=== PATIENT | male | born 1970 | race Caucasian/White ===

== ENCOUNTER 2021-03-11 20:35 | Observation (INO) ==
[2021-03-11] MEDS ORDERED: SODIUM CHLORIDE 0.9% 1000ML 1,000 ML IV SCH (21:15)
[2021-03-11 21:51] LABS: Alanine Aminotransferase 27 U/L (12-78); Albumin Level 3.7 gm/dl (3.4-5.0); Aspartate Aminotransferase 17 U/L (15-37); BUN Creatinine Ratio 17.2 (10-20); Blood Urea Nitrogen 15 mg/dl (7-18); Calcium 9.2 mg/dl (8.5-10.1); Carbon Dioxide 27 mmol/L (21-32); Chloride 107 mmol/L (98-107); Est GFR (African American) 115.6 ml/min; Est GFR (Non-African American) 99.7 ml/min; Glucose 109 mg/dl (70-99); Lipase 112 U/L (73-393); Sodium 139 mmol/L (136-145)
[2021-03-11 21:56] LABS: Alkaline Phosphatase 76 U/L (45-117); Bilirubin,Total 0.2 mg/dl (0.2-1); Globulin 3.7 gm/dl (2.5-4.0); Total Protein 7.4 gm/dl (6.4-8.2); Troponin I < 0.015 ng/ml (0-0.045)
[2021-03-11] MEDS ORDERED: MECLIZINE HCL 25 MG TAB PO STA (22:00)
[2021-03-11 22:40] LABS: Hemoglobin 14.4 g/dL (14.0-18.0); Mean Corpuscular Hgb Conc 34.3 g/dL (32-36); Mean Corpuscular Volume 96.3 fL (80-100); RDW Coefficient of Variation 14.1 % (11.5-14.5); RDW Standard Deviation 50.3 fL (36.4-46.3); Red Blood Count 4.36 M/uL (4.7-6.1)
--- NOTE | 2021-03-11 23:21 | Emergency Department Note ---
Impression & Plan Vomiting, Leukocytosis, Dizziness, Marijuana use ED Provider Note CHIEF COMPLAINT: Dizzy vomiting HISTORY OF PRESENT ILLNESS: This 51-year-old male patient presents to the emergency department by ambulance with complaints of sudden onset dizziness, vomiting per his . Patient's apparently called the ambulance this evening. She states they had a "normal evening" but when they got ready for bed the patient had a sudden urge to vomit. She states there was almost no warning. He seemed to feel better after vomiting and try to get back into bed. He then jumped back up and ran to the bathroom and vomited again. On his way back to bed the second time, the patient was unsteady and seemed to be somewhat disoriented. Patient's states that he was not drinking alcohol tonight and she denies any substance abuse. He has been in his usual state of health. REVIEW OF SYSTEMS: A review of systems was performed with positives and pertinent negatives listed in the history of present illness. 10 systems were reviewed and are otherwise negative. ALLERGIES: see below MEDICATIONS: see below PMH: see below SOCIAL HISTORY: see below DDx: Benign positional vertigo, dehydration, hypovolemia, anemia, tumor, infection, hypoglycemia, electrolyte abnormalities, cardiac sources, intracerebral event, toxicologic, neurologic, as well as other pathologies. PHYSICAL EXAM: Vital signs reviewed. General: Somewhat ill-appearing, thin and somnolent 51-year-old male HEENT: No scleral icterus, PERRLA, pupils are approximately 4 mm and reactive bilaterally neck supple. Atraumatic. Cardiovascular: Regular rate and rhythm, no extra sounds. Pulmonary: Clear to auscultation bilaterally, normal work of breathing. Abdomen: Soft, nontender, nondistended, positive bowel sounds. Musculoskeletal: Atraumatic, no peripheral edema. Neurologic: Patient somnolent but arousable. Speech is clear. Patient does not follow complex commands. Skin: Warm, dry, no rash EMERGENCY DEPARTMENT COURSE/MDM: Patient was evaluated and appeared to be in no significant distress. IV access was obtained and laboratory work was drawn. Patient was placed on nurse monitoring and noted to be in normal sinus rhythm. Chest x-ray was performed and was negative. Head CT read as below, negative for acute abnormality. Laboratory work is positive for marijuana. Patient's blood alcohol content is negative. I do not believe the patient has suffered an acute stroke given his presentation. Patient was hydrated with normal saline solution, given p.o. meclizine. I do suspect this is substance related, possibly cannabis hyperemesis syndrome. Nonetheless at this time patient seems to be somewhat stable. MONITORING: An order for cardiac monitoring was placed and the patient is noted to be in a normal sinus rhythm at 84 beats per minute. RADIOLOGY: See below EKG: Normal sinus rhythm at 91 bpm. QTC is 440. Normal ST segments. Normal axis. QTC is 440. No PVC, no PAC. DISPOSITION: Past Med/Surg History Medical History Back pain Lumbar back sprain Surgical History History of inguinal hernia repair Social History (Updated 03/11/21 @ 23:21 by Qian Godinez MD) Smoking Status: Current every day smoker Tobacco Type: Cigarettes Second Hand Exposure: Yes; Do You Dip or Chew Tobacco: No; Hx Alcohol Use: Yes Alcohol Intake Frequency: 2-3 x/Week Hx Substance Use: No Preferred Language: Belarusian Communication Ability: Effective Track Grinder Operator Required: No Beliefs That Will Affect Care: None Current Living Situation: Spouse Current Living Situation Comment: Other Information That Helps Us Care for You: No Feels Safe at Home: Yes Safety Concerns: Feels Safe At This Time Assistive Devices: None Allergies Allergies Allergy/AdvReac Type Severity Reaction Status Date / Time No Known Allergies Allergy Verified 03/11/21 21:08 Home Meds Home Medications Medication Instructions Recorded Confirmed No Known Home Medications 03/11/21 03/11/21 Results & Data (ED) Vital Signs Vital Signs - 24 hr 03/11/21 20:45 03/11/21 21:00 03/11/21 21:30 Temperature 36.0 C L Temperature Source Oral Pulse Rate 63 70 96 H Pulse Rate from SpO2 Sensor 72 Respiratory Rate 17 17 29 H Blood Pressure 134/93 137/85 135/83 Blood Pressure Mean 106 102 100 Pulse Oximetry 95 92 91 Oxygen Delivery Method Room Air Room Air Room Air Sepsis Recent Fever Within 48 Hours No Sepsis New/Unexplained Change in Mental Status No Sepsis Action Taken by Nursing No Action Required 03/11/21 22:00 03/11/21 22:30 03/11/21 23:00 Temperature Temperature Source Pulse Rate 84 83 81 Pulse Rate from SpO2 Sensor 83 83 82 Respiratory Rate 21 17 19 Blood Pressure 118/70 135/83 123/65 Blood Pressure Mean 86 100 84 Pulse Oximetry 95 93 94 Oxygen Delivery Method Room Air Room Air Room Air Sepsis Recent Fever Within 48 Hours Sepsis New/Unexplained Change in Mental Status Sepsis Action Taken by [facility] Medications Current Medication List: was personally reviewed by me Laboratory Data Attestation: I reviewed the patient's lab results. Result diagrams: 03/12/21 07:09 03/12/21 07:09 Lab Results 03/11/21 03/11/21 03/11/21 Range/Units 21:26 21:26 22:53 WBC 22.70 H (4.8-10.8) K/uL RBC 4.36 L (4.7-6.1) M/uL Hgb 14.4 (14.0-18.0) g/dL Hct 42.0 (42-52) % MCV 96.3 (80-100) fL MCH 33.0 (25-34) pg MCHC 34.3 (32-36) g/dL RDW Std Deviation 50.3 H (36.4-46.3) fL RDW Coeff of Ruthann 14.1 (11.5-14.5) % Plt Count 222 (130-400) K/uL MPV 10.8 H (7.4-10.4) fL Immature Gran % (Auto) 0.3 % Neut % (Auto) 79.9 % Lymph % (Auto) 13.3 % [place] % (Auto) 5.7 % Eos % (Auto) 0.7 % Baso % (Auto) 0.1 % Neut # (Auto) 18.11 H (1.4-6.5) K/uL Lymph # (Auto) 3.03 (1.2-3.4) K/uL [place] # (Auto) 1.30 H (0.11-0.59) K/uL Eos # (Auto) 0.16 (0-0.5) K/uL Baso # (Auto) 0.03 (0-0.2) K/uL Immature Gran # (Auto) 0.07 H (0.00-0.02) K/uL Platelet Estimate Normal (Normal) Sodium 139 (136-145) mmol/L Potassium 4.0 (3.5-5.1) mmol/L Chloride 107 (98-107) mmol/L Carbon Dioxide 27 (21-32) mmol/L Anion Gap 5.0 (3-11) BUN 15 (7-18) mg/dl Creatinine 0.89 (0.6-1.4) mg/dl Est Cr Clr Drug Dosing Not Reportable Est GFR ( Amer) 115.6 ml/min Est GFR (Non-Af Amer) 99.7 ml/min BUN/Creatinine Ratio 17.2 (10-20) Glucose 109 H (70-99) mg/dl Calcium 9.2 (8.5-10.1) mg/dl Magnesium 2.2 (1.8-2.4) mg/dl Total Bilirubin 0.2 (0.2-1) mg/dl AST 17 (15-37) U/L ALT 27 (12-78) U/L Alkaline Phosphatase 76 (45-117) U/L Total Creatine Kinase 146 (39-308) U/L Troponin I < 0.015 (0-0.045) ng/ml Total Protein 7.4 (6.4-8.2) gm/dl Albumin 3.7 (3.4-5.0) gm/dl Globulin 3.7 (2.5-4.0) gm/dl Albumin/Globulin Ratio 1.0 (0.9-2) Lipase 112 (73-393) U/L TSH 0.801 (0.300-4.500) uIu/ml Urine Color Urine Appearance (Clear) Urine pH (4.5-7.5) Ur Specific [place] (1.000-1.030) Urine Protein (Negative) Urine Glucose (UA) (Negative) Urine Ketones (Negative) Urine Blood (Negative) Urine Nitrite (Negative) Urine Bilirubin (Negative) Urine Urobilinogen (Negative) Ur Leukocyte Esterase (Negative) Urine Opiates Screen (Neg) Ur Methadone, Qual (Neg) Urine Barbiturates (Neg) Ur Phencyclidine (PCP) (Neg) U Amphetamin/Meth Scrn (Neg) MDMA (Ecstasy) Screen (Neg) U Benzodiazepines Scrn (Neg) Ur Cocaine Metabolite (Neg) U Marijuana (THC) Screen (Neg) U Marijuana THC Carboxy (<5) ng/mL Drug Screen Comment Ethyl Alcohol mg/dL (0-3) mg/dl COVID-19 Eval Order Covid19 at [facility] SARS-CoV-2 (PCR) (Negative) 03/11/21 03/11/21 03/11/21 Range/Units 22:53 22:56 22:56 WBC (4.8-10.8) K/uL RBC (4.7-6.1) M/uL Hgb (14.0-18.0) g/dL Hct (42-52) % MCV (80-100) fL MCH (25-34) pg MCHC (32-36) g/dL RDW Std Deviation (36.4-46.3) fL RDW Coeff of Ruthann (11.5-14.5) % Plt Count (130-400) K/uL MPV (7.4-10.4) fL Immature Gran % (Auto) % Neut % (Auto) % Lymph % (Auto) % [place] % (Auto) % Eos % (Auto) % Baso % (Auto) % Neut # (Auto) (1.4-6.5) K/uL Lymph # (Auto) (1.2-3.4) K/uL [place] # (Auto) (0.11-0.59) K/uL Eos # (Auto) (0-0.5) K/uL Baso # (Auto) (0-0.2) K/uL Immature Gran # (Auto) (0.00-0.02) K/uL Platelet Estimate (Normal) Sodium (136-145) mmol/L Potassium (3.5-5.1) mmol/L Chloride (98-107) mmol/L Carbon Dioxide (21-32) mmol/L Anion Gap (3-11) BUN (7-18) mg/dl Creatinine (0.6-1.4) mg/dl Est Cr Clr Drug Dosing Est GFR ( Amer) ml/min Est GFR (Non-Af Amer) ml/min BUN/Creatinine Ratio (10-20) Glucose (70-99) mg/dl Calcium (8.5-10.1) mg/dl Magnesium (1.8-2.4) mg/dl Total Bilirubin (0.2-1) mg/dl AST (15-37) U/L ALT (12-78) U/L Alkaline Phosphatase (45-117) U/L Total Creatine Kinase (39-308) U/L Troponin I (0-0.045) ng/ml Total Protein (6.4-8.2) gm/dl Albumin (3.4-5.0) gm/dl Globulin (2.5-4.0) gm/dl Albumin/Globulin Ratio (0.9-2) Lipase (73-393) U/L TSH (0.300-4.500) uIu/ml Urine Color Yellow Urine Appearance Clear (Clear) Urine pH 7.0 (4.5-7.5) Ur Specific [place] 1.020 (1.000-1.030) Urine Protein Negative (Negative) Urine Glucose (UA) Negative (Negative) Urine Ketones Negative (Negative) Urine Blood Negative (Negative) Urine Nitrite Negative (Negative) Urine Bilirubin Negative (Negative) Urine Urobilinogen Negative (Negative) Ur Leukocyte Esterase Negative (Negative) Urine Opiates Screen Neg (Neg) Ur Methadone, Qual Neg (Neg) Urine Barbiturates Neg (Neg) Ur Phencyclidine (PCP) Neg (Neg) U Amphetamin/Meth Scrn Neg (Neg) MDMA (Ecstasy) Screen Neg (Neg) U Benzodiazepines Scrn Neg (Neg) Ur Cocaine Metabolite Neg (Neg) U Marijuana (THC) Screen Pos H (Neg) U Marijuana THC Carboxy (<5) ng/mL Drug Screen Comment Ethyl Alcohol mg/dL (0-3) mg/dl COVID-19 Eval Order SARS-CoV-2 (PCR) NEGATIVE (Negative) 03/11/21 03/11/21 Range/Units 22:56 23:51 WBC (4.8-10.8) K/uL RBC (4.7-6.1) M/uL Hgb (14.0-18.0) g/dL Hct (42-52) % MCV (80-100) fL MCH (25-34) pg MCHC (32-36) g/dL RDW Std Deviation (36.4-46.3) fL RDW Coeff of Ruthann (11.5-14.5) % Plt Count (130-400) K/uL MPV (7.4-10.4) fL Immature Gran % (Auto) % Neut % (Auto) % Lymph % (Auto) % [place] % (Auto) % Eos % (Auto) % Baso % (Auto) % Neut # (Auto) (1.4-6.5) K/uL Lymph # (Auto) (1.2-3.4) K/uL [place] # (Auto) (0.11-0.59) K/uL Eos # (Auto) (0-0.5) K/uL Baso # (Auto) (0-0.2) K/uL Immature Gran # (Auto) (0.00-0.02) K/uL Platelet Estimate (Normal) Sodium (136-145) mmol/L Potassium (3.5-5.1) mmol/L Chloride (98-107) mmol/L Carbon Dioxide (21-32) mmol/L Anion Gap (3-11) BUN (7-18) mg/dl Creatinine (0.6-1.4) mg/dl Est Cr Clr Drug Dosing Est GFR ( Amer) ml/min Est GFR (Non-Af Amer) ml/min BUN/Creatinine Ratio (10-20) Glucose (70-99) mg/dl Calcium (8.5-10.1) mg/dl Magnesium (1.8-2.4) mg/dl Total Bilirubin (0.2-1) mg/dl AST (15-37) U/L ALT (12-78) U/L Alkaline Phosphatase (45-117) U/L Total Creatine Kinase (39-308) U/L Troponin I (0-0.045) ng/ml Total Protein (6.4-8.2) gm/dl Albumin (3.4-5.0) gm/dl Globulin (2.5-4.0) gm/dl Albumin/Globulin Ratio (0.9-2) Lipase (73-393) U/L TSH (0.300-4.500) uIu/ml Urine Color Urine Appearance (Clear) Urine pH (4.5-7.5) Ur Specific [place] (1.000-1.030) Urine Protein (Negative) Urine Glucose (UA) (Negative) Urine Ketones (Negative) Urine Blood (Negative) Urine Nitrite (Negative) Urine Bilirubin (Negative) Urine Urobilinogen (Negative) Ur Leukocyte Esterase (Negative) Urine Opiates Screen (Neg) Ur Methadone, Qual (Neg) Urine Barbiturates (Neg) Ur Phencyclidine (PCP) (Neg) U Amphetamin/Meth Scrn (Neg) MDMA (Ecstasy) Screen (Neg) U Benzodiazepines Scrn (Neg) Ur Cocaine Metabolite (Neg) U Marijuana (THC) Screen (Neg) U Marijuana THC Carboxy 138 H (<5) ng/mL Drug Screen Comment SEE NOTE Ethyl Alcohol mg/dL < 3.0 (0-3) mg/dl COVID-19 Eval Order SARS-CoV-2 (PCR) (Negative) Administered Medications Discontinued Medications Enoxaparin Sodium (Enoxaparin Inj 40 Mg/0.4 Ml Syr) 40 mg SQ QAM ATIYA Stop: 04/11/21 08:59 Last Admin: 03/12/21 09:47 Dose: Not Given Documented by: [id number] Sodium Chloride (Nss 1000ml) 1,000 mls @ 999 mls/hr IV .Q1H1M ATIYA Stop: 03/11/21 22:15 Last Infusion: 03/11/21 22:29 Dose: 0 mls/hr Documented by: [id number] Admin: 03/11/21 21:28 Dose: 999 mls/hr Documented by: [id number] Lactated Ringer's (Lr) 1,000 mls @ 100 mls/hr IV .Q10H ONE Stop: 03/12/21 11:22 Last Infusion: 03/12/21 11:45 Dose: 0 mls/hr Documented by: [id number] Admin: 03/12/21 03:46 Dose: 100 mls/hr Documented by: [id number] Ibuprofen (Ibuprofen 200 Mg Tab) 200 mg PO Q6H PRN PRN Reason: Mild Pain Stop: 04/11/21 02:45 Last Admin: 03/12/21 08:02 Dose: 200 mg Documented by: [id number] Ioversol (Optiray 320 125ml) 120 ml IV ONCE ONE Stop: 03/11/21 23:53 Last Admin: 03/11/21 23:53 Dose: 1 ml Documented by: [id number] Meclizine HCl (Meclizine Hcl 25 Mg Tab) 25 mg PO NOW STA Stop: 03/11/21 22:01 Last Admin: 03/11/21 22:16 Dose: 25 mg Documented by: [id number] Miscellaneous (Remove Nicoderm Patch) 1 ea N/A [id number] [facility] Stop: 04/11/21 08:58 Last Admin: 03/12/21 09:48 Dose: 1 ea Documented by: [id number] Nicotine (Nicotine 21 Mg/24 Hr Tdsy) 21 mg TD QAM ATIYA Stop: 04/11/21 02:45 Last Admin: 03/12/21 09:47 Dose: 21 mg Documented by: [id number] Admin: 03/12/21 03:50 Dose: 21 mg Documented by: [id number] Imaging Data Radiologist's Impression: Head CTA 03/11/21 21:44 CT ANGIOGRAM OF THE BRAIN COMBO CLINICAL HISTORY: Acute posterior circulation symptoms. COMPARISON STUDY: No priors. TECHNIQUE: Unenhanced axial CT scan of the brain is performed. Subsequently, following the IV administration of 120 cc of Optiray 320, CT angiogram of the brain was performed from the skull base to the vertex. Images are reviewed in the axial, sagittal, and coronal planes. 3-D MIPS images are created and assessed. IV contrast was administered without complication. A dose lowering technique was utilized adhering to the principles of ALARA. CT DOSE: 1484.17 mGy.cm FINDINGS: Brain parenchyma: The brain parenchyma is normal in appearance. There is no hemorrhage, mass effect, or evidence of acute territorial ischemia by CT criteria. There is no evidence of enhancing mass lesion on the angiogram phase images. No extra-axial fluid collection is seen. Curtis-white matter differentiation is preserved. Ventricles, sulci, and cisterns: Normal in configuration. CT angiogram of the brain: There is a right posterior communicating artery. The internal carotid arteries are widely patent, as are the anterior and middle cerebral arteries. The vertebrobasilar system and posterior cerebral arteries are widely patent. The vertebral arteries are codominant. There is no aneurysm, high-grade stenosis, or focal vessel cutoff identified throughout the intracranial circulation. Dural sinuses: Clear as visualized. Orbits: The bony orbits are intact. The orbital contents are normal as visualized. Sinuses and mastoids: The visualized paranasal sinuses are clear. The mastoid air cells are well pneumatized. Calvarium: Unremarkable. IMPRESSION: 1. There is no hemorrhage, mass effect, or evidence of acute territorial ischemia by CT criteria. 2. Unremarkable CT angiogram of the brain. ACT 112: Negative or not required by law. Electronically signed by: Buddy Carrillo M.D. 03/12/2021 8:13 AM Neck CTA 03/11/21 21:44 CT ANGIOGRAPHY OF THE NECK WITH CONTRAST CLINICAL HISTORY: post circulation sx, acute onset COMPARISON STUDY: No previous studies for comparison. Technique: CT angiography of the carotid and vertebral arteries was obtained using Optiray and 3D reconstruction on an independent workstation. NASCET criteria was utilized. Automated exposure control was utilized for the study. A dose lowering technique was utilized adhering to the principles of ALARA. Findings: Paraseptal emphysema and biapical scarring is noted within visualized portions of the lungs. No cervical lymphadenopathy. There is no acute cervical spine fracture. No dissection or aneurysm within the neck is noted. The bilateral common carotid, cervical internal carotid and vertebral arteries are patent. There is no stenosis within these vessels. CTA of the head will be reported separately. IMPRESSION: No stenosis or dissection within the bilateral common carotid, cervical internal carotid or vertebral arteries. ACT 112: Negative or not required by law. Electronically signed by: Mariano Carlson M.D. 03/12/2021 7:58 AM Blood Pressure Blood Pressure Findings: Normal blood pressure Blood Pressure Disposition: Referred to patients primary care provider Discharge Plan Visit Data Chief Complaint: Vomiting Stated Complaint: VOMITING ED Provider: Qian Godinez Discharge Problem: Vomiting, Leukocytosis, Dizziness, Marijuana use Patient Disposition: Admitted As Inpatient Discharge Instructions Interventions: ED Discharge Assessment Last Done: 03/12/21 02:21 Discharge Problem: Vomiting Qualifiers: Vomiting type: unspecified Vomiting Intractability: non-intractable Nausea presence: with nausea Qualified Code(s): R11.2 - Nausea with vomiting, unspecified Leukocytosis Qualifiers: Leukocytosis type: unspecified Qualified Code(s): D72.829 - Elevated white blood cell count, unspecified
[2021-03-11 23:30] LABS: Appearance Urine Clear (Clear); Bilirubin Urine Negative (Negative); Blood Urine Negative (Negative); Color Urine Yellow; Glucose Urine UA Negative (Negative); Ketones Urine Negative (Negative); Leukocyte Esterase Urine Negative (Negative); Nitrite Urine Negative (Negative); Protein Urine Negative (Negative); Urobilinogen Urine Negative (Negative)
[2021-03-11 23:37] LABS: Mean Platelet Volume 10.8 fL (7.4-10.4); Platelet Count 222 K/uL (130-400)
[2021-03-11 23:38] LABS: Basophils # (auto) 0.03 K/uL (0-0.2); Basophils % (auto) 0.1 %; Eosinophils # (auto) 0.16 K/uL (0-0.5); Eosinophils % (auto) 0.7 %; Immature Granulocytes # (auto) 0.07 K/uL (0.00-0.02); Immature Granulocytes % (auto) 0.3 %; Lymphocytes # (auto) 3.03 K/uL (1.2-3.4); Lymphocytes % (auto) 13.3 %; Monocytes % (auto) 5.7 %; Neutrophils # (auto) 18.11 K/uL (1.4-6.5); Neutrophils % (auto) 79.9 %; Platelet Estimate Normal (Normal)
[2021-03-11] MEDS ORDERED: OPTIRAY 320 125ml IV ONE (23:52)
[2021-03-11 23:53] LABS: Amphetamines+Metham, Urine Neg (Neg); Barbiturates, Urine Neg (Neg); Benzodiazepine, Urine Neg (Neg); Cocaine, Urine Neg (Neg); MDMA (Ecstacy), Urine Neg (Neg); Methadone, Urine Neg (Neg); Opiate, Urine Neg (Neg); Phencyclidine, Urine Neg (Neg)
[2021-03-12 01:11] LABS: Creatine Kinase 146 U/L (39-308); Magnesium 2.2 mg/dl (1.8-2.4); Thyroid Stimulating Hormone 0.801 uIu/ml (0.300-4.500)
--- NOTE | 2021-03-12 01:18 | History & Physical Report ---
Date of Service March 12, 2021 Assessment & Plan (1) Acute gastroenteritis: Plan: Presumably viral for now ? Marijuana use contributory Transient encephalopathy secondary to above Patient currently mentating well. Ongoing tobacco abuse OBS GMF Supportive measures for viral gastroenteritis IVF Nicotine patch DC home when patient feeling much better. DVT prophylaxis. Lovenox subcu Full code Text document was generated using [employer] voice recognition software. It may contain grammatical or spelling errors. Kindly contact undersigned for clarification of any documentation item in question. History of Present Illness Chief Complaint: Vomiting as per records Primary Care Provider: Lawrence Forrester MD History obtained from patient and records. Medical history significant for ongoing tobacco abuse. Patient had sudden onset nausea, vomiting, diarrhea symptoms at work today. No known recent antibiotic Rx/out-of-town travel/sick contacts. Denies headache or dizziness symptoms. Denies chest pain, S OB. Patient somewhat disoriented at home as per . Generalized weakness as per patient. Patient sent to the ER for evaluation. Patient currently feeling much better after IV hydration given at the ER. Medical History as above Surgical History : Hernia repair, appendectomy Family History : Hypertension Personal/Social history : 1 pack daily, occasional alcohol intake, [employer] employee Allergies Allergy/AdvReac Type Severity Reaction Status Date / Time No Known Allergies Allergy Verified 03/11/21 21:08 Home Medications Medication Instructions Recorded Confirmed Type No Known Home Medications 03/11/21 03/11/21 History Past Med/Surg History Medical History Back pain Lumbar back sprain Surgical History History of inguinal hernia repair Social History (Updated 03/11/21 @ 23:21 by Qian Godinez MD) Smoking Status: Current every day smoker Tobacco Type: Cigarettes Second Hand Exposure: Yes; Do You Dip or Chew Tobacco: No; Hx Alcohol Use: Yes Alcohol Intake Frequency: 2-3 x/Week Hx Substance Use: No Preferred Language: Bangladeshi Communication Ability: Effective [employer] Required: No Beliefs That Will Affect Care: None Current Living Situation: Spouse Current Living Situation Comment: Other Information That Helps Us Care for You: No Feels Safe at Home: Yes Safety Concerns: Feels Safe At This Time Assistive Devices: None Review of Systems Review of Systems: As per HPI, all 10 systems reviewed, all other ROS negative Physical Exam Physical Exam: GENERAL: Slightly uncomfortable, wane, no respiratory distress SKIN: Normal color, warm HEENT: [place] palpebral conjunctivae, no ptosis, dry buccal mucosa NECK : Supple, no tenderness CHEST : CTA, no tenderness HEART : RRR, no obvious murmurs ABDOMEN: Some distention, nontender EXTREMITIES : No LE swelling/tenderness, no other conspicuous deformities noted NEUROLOGIC : Coherent, no facial asymmetry, no other gross focality Results & Data Results & Data ([facility]) Vital Signs (Past 12 Hours) Vital Signs Temp Pulse Resp BP Pulse Ox 03/11/21 23:00 81 19 123/65 94 03/11/21 22:30 83 17 135/83 93 03/11/21 22:00 84 21 118/70 95 03/11/21 21:30 96 H 29 H 135/83 91 03/11/21 21:00 70 17 137/85 92 03/11/21 20:45 36.0 C L 63 17 134/93 95 Laboratory Results Laboratory Results WBC 22.70 K/uL (4.8-10.8) H 03/11/21 21:26 RBC 4.36 M/uL (4.7-6.1) L 03/11/21 21:26 Hgb 14.4 g/dL (14.0-18.0) 03/11/21 21:26 Hct 42.0 % (42-52) 03/11/21 21:26 MCV 96.3 fL (80-100) 03/11/21 21:26 MCH 33.0 pg (25-34) 03/11/21 21:26 MCHC 34.3 g/dL (32-36) 03/11/21 21:26 RDW Std Deviation 50.3 fL (36.4-46.3) H 03/11/21 21:26 RDW Coeff of Ruthann 14.1 % (11.5-14.5) 03/11/21 21:26 Plt Count 222 K/uL (130-400) 03/11/21 21:26 MPV 10.8 fL (7.4-10.4) H 03/11/21 21:26 Immature Gran % (Auto) 0.3 % 03/11/21 21:26 Neut % (Auto) 79.9 % 03/11/21 21: Lymph % (Auto) 13.3 % 03/11/21 21: [place] % (Auto) 5.7 % 03/11/21 21: Eos % (Auto) 0.7 % 03/11/21 21: Baso % (Auto) 0.1 % 03/11/21 21: Neut # (Auto) 18.11 K/uL (1.4-6.5) H 03/11/21 21: Lymph # (Auto) 3.03 K/uL (1.2-3.4) 03/11/21 21: [place] # (Auto) 1.30 K/uL (0.11-0.59) H 03/11/21 21: Eos # (Auto) 0.16 K/uL (0-0.5) 03/11/21 21: Baso # (Auto) 0.03 K/uL (0-0.2) 03/11/21 21: Immature Gran # (Auto) 0.07 K/uL (0.00-0.02) H 03/11/21 21: Platelet Estimate Normal (Normal) 03/11/21 21: Sodium 139 mmol/L (136-145) 03/11/21 21: Potassium 4.0 mmol/L (3.5-5.1) 03/11/21 21: Chloride 107 mmol/L (98-107) 03/11/21 21: Carbon Dioxide 27 mmol/L (21-32) 03/11/21: Anion Gap 5.0 (3-11) 03/11/21 21: BUN 15 mg/dl (7-18) 03/11/21 21: Creatinine 0.89 mg/dl (0.6-1.4) 03/11/21: Est Cr Clr Drug Dosing Not Reportable 03/11/21: Est GFR ( Amer) 115.6 ml/min 03/11/21 21: Est GFR (Non-Af Amer) 99.7 ml/min 03/11/21 21: BUN/Creatinine Ratio 17.2 (10-20) 03/11/21 21: Glucose 109 mg/dl (70-99) H 03/11/21 21:26 Calcium 9.2 mg/dl (8.5-10.1) 03/11/21 21:26 Magnesium 2.2 mg/dl (1.8-2.4) 03/11/21 21:26 Total Bilirubin 0.2 mg/dl (0.2-1) 03/11/21 21:26 AST 17 U/L (15-37) 03/11/21 21:26 ALT 27 U/L (12-78) 03/11/21 21:26 Alkaline Phosphatase 76 U/L (45-117) 03/11/21 21:26 Total Creatine Kinase 146 U/L (39-308) 03/11/21 21:26 Troponin I < 0.015 ng/ml (0-0.045) 03/11/21 21: Total Protein 7.4 gm/dl (6.4-8.2) 03/11/21 21:26 Albumin 3.7 gm/dl (3.4-5.0) 03/11/21 21: Globulin 3.7 gm/dl (2.5-4.0) 03/11/21 21:26 Albumin/Globulin Ratio 1.0 (0.9-2) 03/11/21 21: Lipase 112 U/L (73-393) 03/11/21 21: TSH 0.801 uIu/ml (0.300-4.500) 03/11/21 21:26 Urine Color Yellow 03/11/21 22:56 Urine Appearance Clear (Clear) 03/11/21 22:56 Urine pH 7.0 (4.5-7.5) 03/11/21 22:56 Ur Specific [place] 1.020 (1.000-1.030) 03/11/21 22:56 Urine Protein Negative (Negative) 03/11/21 22:56 Urine Glucose (UA) Negative (Negative) 03/11/21 22:56 Urine Ketones Negative (Negative) 03/11/21 22:56 Urine Blood Negative (Negative) 03/11/21 22:56 Urine Nitrite Negative (Negative) 03/11/21 22:56 Urine Bilirubin Negative (Negative) 03/11/21 22:56 Urine Urobilinogen Negative (Negative) 03/11/21 22:56 Ur Leukocyte Esterase Negative (Negative) 03/11/21 22:56 Urine Opiates Screen Neg (Neg) 03/11/21 22:56 Ur Methadone, Qual Neg (Neg) 03/11/21 22:56 Urine Barbiturates Neg (Neg) 03/11/21 22:56 Ur Phencyclidine (PCP) Neg (Neg) 03/11/21 22:56 U Amphetamin/Meth Scrn Neg (Neg) 03/11/21 22:56 MDMA (Ecstasy) Screen Neg (Neg) 03/11/21 22:56 U Benzodiazepines Scrn Neg (Neg) 03/11/21 22:56 Ur Cocaine Metabolite Neg (Neg) 03/11/21 22:56 U Marijuana (THC) Screen Pos (Neg) H 03/11/21 22:56 Ethyl Alcohol mg/dL < 3.0 mg/dl (0-3) 03/11/21 23:51 COVID-19 Eval Order Covid19 at [facility] 03/11/21 22:53 SARS-CoV-2 (PCR) NEGATIVE (Negative) 03/11/21 22:53 Diagnostic Findings CTA head initial read: No acute intracranial hemorrhage, mass-effect, or midline shift. No evidence of posterior cerebral circulation occlusion or high-grade stenosis. No evidence of acute large vessel intracranial arterial occlusion. If there is continued concern of acute ischemia, consider MRI of the brain as it is a more sensitive modalityin its earlydetection. No intracranial aneurysmmeasuring 3 mmor greater. Incidental origin of the right posterior cerebral artery. CTA neck initial read: No carotid or vertebral arterydissection. No carotid stenosis. Paraseptal emphysema at the lung apices. Multilevel cervical spondylosis. EKG as per my interpretation: Rate 90, NSR, normal axis, no ischemia
[2021-03-12] MEDS ORDERED: PROMETHAZINE HCL 12.5 MG in SODIUM CHLORIDE 0.9% 50 ML IV PRN (01:23)
[2021-03-12] MEDS ORDERED: LACTATED RINGER'S 1,000 ML IV ONE (01:23)
[2021-03-12] MEDS ORDERED: ACETAMINOPHEN 325 MG TAB PO PRN (01:23)
[2021-03-12] MEDS ORDERED: IBUPROFEN 200 MG TAB PO PRN (02:46)
[2021-03-12] MEDS ORDERED: KETOROLAC TROMETHAMINE 15 MG/ML VIAL IV PRN (02:46)
[2021-03-12] MEDS: NICOTINE 21 MG/24 HR TDSY TD SCH ×2 (03:50→09:47)
--- NOTE | 2021-03-12 08:00 | CT Scan Report ---
CT ANGIOGRAPHY OF THE NECK WITH CONTRAST CLINICAL HISTORY: post circulation sx, acute onset COMPARISON STUDY: No previous studies for comparison. Technique: CT angiography of the carotid and vertebral arteries was obtained using Optiray and 3D rec onstruction on an independent workstation. NASCET criteria was utilized. Automated exposure control was utilized for the study. A dose lowering technique was utilized adhering to the principles of ALA RA. Findings: Paraseptal emphysema and biapical scarring is noted within visualized portions of the lungs . No cervical lymphadenopathy. There is no acute cervical spine fracture. No dissection or aneurysm w ithin the neck is noted. The bilateral common carotid, cervical internal carotid and vertebral arteri es are patent. There is no stenosis within these vessels. CTA of the head will be reported separately . IMPRESSION: No stenosis or dissection within the bilateral common carotid, cervical internal carotid or vertebral arteries. ACT 112: Negative or not required by law. Electronically signed by: Mariano Carlson M.D. 03/12/2021 7:58 AM
--- NOTE | 2021-03-12 08:14 | CT Scan Report ---
CT ANGIOGRAM OF THE BRAIN COMBO CLINICAL HISTORY: Acute posterior circulation symptoms. COMPARISON STUDY: No priors. TECHNIQUE: Unenhanced axial CT scan of the brain is performed. Subsequently, following the IV adminis tration of 120 cc of Optiray 320, CT angiogram of the brain was performed from the skull base to the vertex. Images are reviewed in the axial, sagittal, and coronal planes. 3-D MIPS images are created a nd assessed. IV contrast was administered without complication. A dose lowering technique was utiliz ed adhering to the principles of ALARA. CT DOSE: 1484.17 mGy.cm FINDINGS: Brain parenchyma: The brain parenchyma is normal in appearance. There is no hemorrhage, mass effect, or evidence of acute territorial ischemia by CT criteria. There is no evidence of enhancing mass lesi on on the angiogram phase images. No extra-axial fluid collection is seen. Crutis-white matter differen tiation is preserved. Ventricles, sulci, and cisterns: Normal in configuration. CT angiogram of the brain: There is a right posterior communicating artery. The internal carotid brenda yaquelin are widely patent, as are the anterior and middle cerebral arteries. The vertebrobasilar system and posterior cerebral arteries are widely patent. The vertebral arteries are codominant. There is no aneurysm, high-grade stenosis, or focal vessel cutoff identified throughout the intracranial circula tion. Dural sinuses: Clear as visualized. Orbits: The bony orbits are intact. The orbital contents are normal as visualized. Sinuses and mastoids: The visualized paranasal sinuses are clear. The mastoid air cells are well pneu matized. Calvarium: Unremarkable. IMPRESSION: 1. There is no hemorrhage, mass effect, or evidence of acute territorial ischemia by CT criteria. 2. Unremarkable CT angiogram of the brain. ACT 112: Negative or not required by law. Electronically signed by: Buddy Carrillo M.D. 03/12/2021 8:13 AM
[2021-03-12 08:55] LABS: Calcium 8.9 mg/dl (8.5-10.1); Creatinine Clr Calc Pharmacy 142.5 ml/min; Est GFR (African American) 137.8 ml/min; Est GFR (Non-African American) 118.9 ml/min; Potassium 4.1 mmol/L (3.5-5.1)
[2021-03-12] MEDS ORDERED: ENOXAPARIN INJ 40 MG/0.4 ML SYR SQ SCH (09:00)
[2021-03-12 09:05] LABS: Basophils # (auto) 0.02 K/uL (0-0.2); Basophils % (auto) 0.2 %; Eosinophils # (auto) 0.11 K/uL (0-0.5); Eosinophils % (auto) 1.1 %; Hematocrit (blood only) 40.1 % (42-52); Hemoglobin 13.3 g/dL (14.0-18.0); Immature Granulocytes # (auto) 0.02 K/uL (0.00-0.02); Immature Granulocytes % (auto) 0.2 %; Lymphocytes # (auto) 2.65 K/uL (1.2-3.4); Lymphocytes % (auto) 27.6 %; Mean Corpuscular Hemoglobin 32.3 pg (25-34); Mean Corpuscular Hgb Conc 33.2 g/dL (32-36); Mean Corpuscular Volume 97.3 fL (80-100); Mean Platelet Volume 9.8 fL (7.4-10.4); Monocytes # (auto) 0.79 K/uL (0.11-0.59); Monocytes % (auto) 8.2 %; Neutrophils # (auto) 6.01 K/uL (1.4-6.5); Neutrophils % (auto) 62.7 %; Platelet Count 328 K/uL (130-400); RDW Coefficient of Variation 14.2 % (11.5-14.5); RDW Standard Deviation 50.7 fL (36.4-46.3); Red Blood Count 4.12 M/uL (4.7-6.1)
--- NOTE | 2021-03-12 10:32 | Electrocardiogram Report ---
Test Reason : Blood Pressure : / mmHG Vent. Rate : 091 BPM Atrial Rate : 091 BPM P-R Int : 124 ms QRS Dur : 078 ms QT Int : 358 ms P-R-T Axes : 075 072 065 degrees QTc Int : 440 ms Poor data quality, interpretation may be adversely affected Normal sinus rhythm Normal ECG No previous ECGs available Confirmed by Roni Lew ([id number]) on 03/12/2021 10:32:16 AM Referred By: REFERRED SELF Confirmed By:Roni Lew
--- NOTE | 2021-03-12 17:17 | Discharge Summary ---
Date of Service March 12, 2021 Admission HPI Per Admitting Provider History obtained from patient and records. Medical history significant for ongoing tobacco abuse. Patient had sudden onset nausea, vomiting, diarrhea symptoms at work today. No known recent antibiotic Rx/out-of-town travel/sick contacts. Denies headache or dizziness symptoms. Denies chest pain, S OB. Patient somewhat disoriented at home as per . Generalized weakness as per patient. Patient sent to the ER for evaluation. Patient currently feeling much better after IV hydration given at the ER. Medical History as above Surgical History : Hernia repair, appendectomy Family History : Hypertension Personal/Social history : 1 pack daily, occasional alcohol intake, [employer] employee Admission Exam Per Admitting Provider GENERAL: Slightly uncomfortable, wane, no respiratory distress SKIN: Normal color, warm HEENT: [place] palpebral conjunctivae, no ptosis, dry buccal mucosa NECK : Supple, no tenderness CHEST : CTA, no tenderness HEART : RRR, no obvious murmurs ABDOMEN: Some distention, nontender EXTREMITIES : No LE swelling/tenderness, no other conspicuous deformities noted NEUROLOGIC : Coherent, no facial asymmetry, no other gross focality Principal Diagnosis Acute gastroenteritis Discharge Exam GENERAL: Alert and oriented x3. NAD, on RA. HEENT: No pallor, no icterus. Pupils equal, round and reactive to light. Oral mucosa moist. NECK: No JVD, no neck masses. HEART: S1 and S2 heard. Regular rate and rhythm. No murmur, no gallop. RESPIRATORY SYSTEM: Normal AP diameter. No accessory muscle use. No wheezing, no crackles. ABDOMEN: Soft, bowel sounds present, nontender, no distention. CENTRAL NERVOUS SYSTEM: Alert and oriented x3. No facial droop. Speech is clear. Obeys simple commands. Moves extremities. EXTREMITIES: No edema, no erythema seen. Discharge Data Allergies Allergy/AdvReac Type Severity Reaction Status Date / Time No Known Allergies Allergy Verified 03/11/21 21:08 Consultations 03/12/21 00:06 ED Decision to Admit Stat Ordered Studies 03/11/21 21:44 CT angio head wo/w Urgent CT angio neck with con Urgent Hospital Course (1) Acute gastroenteritis: 51-year-old man with history of current tobacco abuse [1 to 1.5 packs a day since age 19] and marijuana use [U tox positive in hospital admission for marijuana] presented 03/11 with sudden onset of nausea, vomiting, diarrhea yesterday after dinner per patient. No identifiable source. Likely contributed by marijuana use. No other family members had such symptoms, no recent antibiotic use sick contact or hospital admission. Patient had no chest pain or shortness of breath. Patient was put in observation, given IV fluids and rest, patient improved remarkably. No further diarrhea or nausea or vomiting while in hospital. Patient is feeling better, AOx3 and is okay to go home. Patient was advised on smoking cessation and marijuana cessation. Patient to start on soft diet, slowly progress to regular diet. Patient will need to follow-up with his PCP within a week time. Patient made aware. Total Time Total Time Spent Total Time Spent (In Minutes): 40 Discharge Plan Discharge Items Patient Disposition: Home - Self-Care Reason For Visit: NAUSEA / VOMITING / DIARRHEA Discharge Diagnosis: Acute gastroenteritis Activity: Resume your previous activity Non-emergency contact: Primary Care Provider Call non-emergency contact if: you have any medication questions, your symptoms worsen and your temperature is above 101 Follow-up/Referrals: Lawrence Forrester MD [Primary Care Provider] - 03/22/21 2:40 pm (Date & Time 03/22/2021 2:40 PM Provider Prashanth Max MD [facility] ) Diet: Regular Addtl Attending Provider Instructions: Follow-up with your primary care doctor within a week time. Start with soft diet, slowly advance as tolerated towards your regular diet. Would advise to be off of any marijuana use. Pending Studies at Discharge: Yes (Admitting blood culture) Stand-Alone Forms: [facility], Smoking Cessation Medications and DC Order Prescriptions: No Action No Known Home Medications RF: 0 Discharge Orders: Discharge Order (Routine); Ordered 03/12/21 Ordered By: Kim Ram Admission Data Admit Date/Time: 03/12/21 01:21 Attending Provider: Kim Ram Admit Provider: Nba Ruiz Primary Care Provider: Lawrence Forrester Other Providers: Nba Ruiz Other Interventions: Discharge Summary Assessment (RN) Last Done: 03/12/21 15:43
[2021-03-14 08:22] LABS: Marijuana Quant, GCMS Urine 138 ng/mL (<5)
== END 2021-03-12 17:15 | disposition home or self-care (01) ==
LOC: ED 20:35 → 3E 20:35 → SUATTDRO 03-12 01:21 → 3E 03-12 02:21